=== PATIENT | male | born 1940 | race Caucasian/White ===

== ENCOUNTER → 2016-08-15 | Outpatient (CLI) | payer OTHER ==
[~2016-08-15] MED LIST: ALPRAZOLAM PO; ASPIRIN81 M2 PO; BUSPAR PO; CATAPRES0.1 MG PO; DESYREL50 MG PO; NORVASC10 MG PO; OMEPRAZOLE20 M1 PO; RANEXA500 MG PO; SIMVASTATIN40 MG PO; TOPROL XL 50 MG50 MG PO
--- NOTE | ~2016-08-15 | US6 ---
[facility] A Service of [facility] & [facility] RADIOLOGY TEXT RESULTS PATIENT: JOSE SANCHEZ LOCATION: [facility] [place] : 38 UNIT #: [id number] AGE: [address]: DARYL KEITA APRN SEX: M ORDER DR: [id number] [facility] [address] [place], [place] [address] [id number] O MR#: [id number] Acc #: [id number] NAME: JOSE SANCHEZ : 1940 SEX: M STUDY DATE/TIME: 08/15/2016 10:38 UNIT: [facility] [place] ROOM: STUDY DESCRIPTION: US Abdominal Limited Attending Physician: Marcus Keita M.D. Referring Physician: Marcus Keita M.D. Ordering Physician: Marcus Keita M.D. Primary Care Physician: Kofi Hansen M.D. MEDICAL IMAGING REPORT This report is preliminary unless electronic signature is present EXAM Right upper quadrant abdominal ultrasound INDICATION Right upper quadrant abdominal pain for the past 2 months. PROCEDURE Marshall-scale and Doppler imaging right upper quadrant of the abdomen. COMPARISON None. FINDINGS Visualized portions of pancreas are unremarkable. No liver mass on submitted images. Liver measures 14.6 cm. Right kidney measures 11.1 cm. No hydronephrosis. Common duct measures 5-6 mm. Unremarkable gallbladder. Dictated by... Brayan Cox M.D. THIS IS AN ELECTRONICALLY VERIFIED REPORT Brayan Cox M.D. at 08/16/2016 7:07 AM ELIAS/kassy TD: 08/15/2016 14:10 JOB #: [id number] MEDICAL IMAGING REPORT COPY
== END | disposition home or self-care (01) ==
LOC: CGUS 10:14
DX: R10.11 Right upper quadrant pain (principal)
CPT/HCPCS: 76705

== ENCOUNTER → 2016-10-26 | Outpatient (CLI) | payer OTHER ==
--- NOTE | ~2016-10-26 | ST ---
Unit #: [id number] #: [id number] Patient: JOSE SANCHEZ [id number] [facility]. [place], [place] [address] [id number] O MR#: [id number] NAME: JOSE SANCHEZ : 1940 SEX: M STUDY DATE/TIME: 10/26/2016 UNIT: [facility] ROOM: STUDY DESCRIPTION: Stress ECG and nuclear comb. Attending Physician: Danny Diaz M.D. Referring Physician: Danny Diaz M.D. Primary Care Physician: Kofi Hansen M.D. CARDIOLOGY REPORT EXAM Stress ECG and nuclear combined. INDICATION Coronary artery disease, status post CABG, permanent pacemaker, hypertension, dyslipidemia, new onset chest pain to evaluate coronary disease as a contributor to the chest pain in a patient with an abnormal rest ECG. SUMMARY The patient exercised under Rahul protocol to maximal effort. Patient completed 6 minutes of exercise. Technetium 99 Cardiolite 12.0 and 35.5 mCi was injected at rest and stress respectively. Appropriate views were obtained. FINDINGS Patient exercised from a heart rate of 63 to 134 (93%) and blood pressure increased 148/101 to 201/116. The rest ECG was abnormal with T wave inversion in AVL, and nonspecific ST changes with J point depression in AVF. There were no significant dysrhythmias, no heart block, and no diagnostic ST changes. There was no chest pain with stress. Perfusion images demonstrate normal perfusion throughout the myocardium, with mild diaphragmatic artifact. Gated wall motion analysis demonstrates low normal ejection fraction, end-diastolic volume 101, ejection fraction 55% quantitatively, qualitatively ejection fraction appears to be closer to 50%. Planar images demonstrate no significant patient motion with stress, but mild patient motion at rest. The LV size is normal. RV size appears normal but is poorly seen. There is no increased lung uptake. Summed stress scores is 7, summed difference scores is 7. These changes involve primarily border detection at the base. IMPRESSION 1. Myocardial perfusion scan shows no ischemia or infarction. 2. Normal wall motion with excellent ejection fraction. 3. No chest pain with stress. 4. This is a normal study. No clinical changes required. RECOMMENDATION Continued regular exercise to increase endurance. Dictated by... Unit #: [id number] #: [id number] Patient: JOSE SANCHEZ M.D. PJR/kandis TD: 10/26/2016 13:36 JOB #: [id number] CARDIOLOGY REPORT Page 1 of 1 X Danny Diaz MD CARDIOLOGY REPORT
--- NOTE | ~2016-10-26 | US37 ---
[facility] A Service of [facility] & [facility] RADIOLOGY TEXT RESULTS PATIENT: JOSE SANCHEZ LOCATION: [facility] : 38 UNIT #: [id number] AGE: [address]: Danny Diaz MD SEX: M ORDER DR: [id number] [facility] [address] [place], [place] [address] [id number] O MR#: [id number] Acc #: [id number] NAME: JOSE SANCHEZ : 1940 SEX: M STUDY DATE/TIME: 10/26/2016 12:22 UNIT: [facility] ROOM: STUDY DESCRIPTION: US Carotid W/Doppler Bilateral Attending Physician: Dnany Diaz M.D. Referring Physician: Danny Diaz M.D. Ordering Physician: Danny Diaz M.D. Primary Care Physician: Kofi Hansen M.D. MEDICAL IMAGING REPORT This report is preliminary unless electronic signature is present DATE OF EXAMINATION 10/26/2016 EXAMINATION Bilateral carotid duplex. CLINICAL HISTORY Carotid bruit. FINDINGS There is patent flow seen throughout the right common carotid, internal carotid, and external carotid arteries. There are some mild, echogenic plaque seen in the right carotid bifurcation. The right common carotid artery peak velocity is 53 cm/sec. The right internal carotid artery peak systolic over end diastolic velocities are: Proximal 50/14 cm/sec, mid 60/16 cm/sec, distal 33/9 cm/sec. The right external carotid artery has a peak velocity of 49 cm/sec, and vertebral artery 22 cm/sec. The right ICA:CCA ratio is 1.07. There is patent flow seen throughout the left common carotid, internal carotid, and external carotid arteries. There is mild diffuse atherosclerosis of the left common carotid artery, which is homogeneous and irregular appearing. At the left carotid bifurcation, there is some irregular, echogenic, and heterogeneous plaque seen. The left common carotid artery peak velocity is 36 cm/sec. The left internal carotid artery peak systolic over end-diastolic velocities are: Proximal 34/12 cm/sec, mid 28/8 cm/sec, distal 29/9 cm/sec. The left external carotid artery peak velocity is 50 cm/sec, vertebral artery 35 cm/sec. The left ICA:CCA ratio is 1.03. IMPRESSION 1. The right carotid artery has mild atherosclerosis, which is not STS. [facility] A Service of [facility] & [facility] RADIOLOGY TEXT RESULTS PATIENT: JOSE SANCHEZ LOCATION: [facility] #: [id number] : 38 UNIT #: [id number] AGE: [address]: Danny Diaz MD SEX: M ORDER DR: hemodynamically significant by Duplex criteria (less than 50%). 2. The left carotid artery has mild atherosclerosis which is not hemodynamically significant by Duplex criteria (less than 50%). 3. Vertebral flow is antegrade bilaterally. Dictated by... Reese Krause M.D. THIS IS AN ELECTRONICALLY VERIFIED REPORT Reese Krause M.D. at 10/27/2016 9:18 AM MARILYN/daquan TD: 10/26/2016 20:05 JOB #: [id number] MEDICAL IMAGING REPORT Page 1 of 1 COPY
== END | disposition home or self-care (01) ==
LOC: CNUC 09:00
DX: I25.10 Atherosclerotic heart disease of native coronary artery without angina pectoris (principal); I10 Essential (primary) hypertension; I48.0 Paroxysmal atrial fibrillation; R09.89 Other specified symptoms and signs involving the circulatory and respiratory systems; I65.23 Occlusion and stenosis of bilateral carotid arteries; I51.7 Cardiomegaly; I50.30 Unspecified diastolic (congestive) heart failure; I36.1 Nonrheumatic tricuspid (valve) insufficiency; Z95.0 Presence of cardiac pacemaker
CPT/HCPCS: 78452; 93017; 93306; 93880; A9500

== ENCOUNTER → 2016-12-12 | Outpatient (CLI) | payer OTHER ==
[2016-12-12 11:47] LABS: CALCIUM SERUM 9.1 mg/dL (8.4-10.2); GLOM FILT RATE Estimated 72.3 mL/min (>60); MAGNESIUM 1.9 mg/dL (1.6-3.0)
== END | disposition home or self-care (01) ==
LOC: CLAB 10:25
DX: R60.9 Edema, unspecified (principal)
CPT/HCPCS: 36415; 80048; 83735

== ENCOUNTER → 2017-01-31 | Outpatient (CLI) | payer OTHER ==
--- NOTE | ~2017-01-31 | CT7 ---
[facility] A Service of [facility] RADIOLOGY TEXT RESULTS PATIENT: JOSE SANCHEZ LOCATION: [facility] : 38 UNIT #: [id number] AGE: [address]: Danny Diaz MD SEX: M ORDER DR: [id number] [facility]. [place], [place] [address] [id number] O MR#: [id number] Acc #: [id number] NAME: JOSE SANCHEZ : 1940 SEX: M STUDY DATE/TIME: 01/31/2017 12:31 UNIT: [facility] ROOM: STUDY DESCRIPTION: CT Abdomen Wo Cont Attending Physician: Danny Diaz M.D. Referring Physician: Danny Diaz M.D. Ordering Physician: Danny Diaz M.D. Primary Care Physician: Kofi Hansen M.D. MEDICAL IMAGING REPORT This report is preliminary unless electronic signature is present EXAMINATION CT abdomen without contrast. DATE 01/31/2017 HISTORY 76-year-old male with hypertension. Assess for sympathetic producing tumor. Blood pressure 220 to 230. Additional history of previous appendectomy, heart surgery, prostate cancer diagnosed 5 years ago. COMPARISON Right upper quadrant ultrasound, 08/15/2016. No prior CT abdomen at this institution for comparison. PROCEDURE 5 mm axial images from lung bases to the iliac crest without contrast. This CT exam was performed with one or more of the following radiation dose reduction techniques: automatic exposure control, adjustment of mA and/or kV according to patient size, and iterative reconstruction. SPECIAL NOTE The patient, via an sheet metal insulator, conveyed that he has an IV contrast allergy, and has not been premedicated. For this reason, noncontrast study only today was performed. FINDINGS Normal appearance of the adrenal glands without nodularity or abnormal thickening. No retroperitoneal mass lesion is identified and no pathologic adenopathy is seen. No mesenteric mass lesion is evident. [facility] A Service [facility] RADIOLOGY TEXT RESULTS PATIENT: JOSE SANCHEZ [id number] 38 UNIT #: [id number] AGE: [address]: Danny Diaz MD SEX: M ORDER DR: Imaged lung bases appear clear. Pacemaker device in place. The distal descending thoracic aorta is tortuous and ectatic up to 2.9 cm. 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 It appears to have chronic eccentric neural soft and calcific plaquing, although, the lumen is not optimally assessed without the benefit of IV contrast. The aneurysm extends approximately 3.4 cm craniocaudally, beginning at about 1.2 cm below the origin of the left renal artery. The liver, gallbladder, spleen, pancreas, adrenals have a normal noncontrast appearance. Imaged bowel has an unremarkable appearance. Mild lumbar curvature toward the right. No acute or suspicious osseous abnormalities. IMPRESSION 1. The study was performed without contrast, as the patient relates a history of contrast allergy for which he was not premedicated. If the postcontrast imaging is desired, it can be scheduled at a later date with premedication. 2. No mass lesions identified within the abdomen. The adrenal glands have an unremarkable noncontrast appearance. 3. If there is additional concern for potential pheochromocytoma, MIBG scan may also prove an alternative examination. 3. 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 Dictated by... Alexa Camarena M.D. THIS IS AN ELECTRONICALLY VERIFIED REPORT Alexa Camarena M.D. at 02/01/2017 12:10 PM Faiza TD: 01/31/2017 20:38 JOB #: [id number] MEDICAL IMAGING REPORT Page 1 of 1 COPY
== END | disposition home or self-care (01) ==
LOC: CCAT 11:01
DX: I10 Essential (primary) hypertension (principal); I71.4 Abdominal aortic aneurysm, without rupture; Z91.041 Radiographic dye allergy status
CPT/HCPCS: 74150